=== PATIENT | female | born 1950 | race Caucasian/White ===

== ENCOUNTER 2024-03-03 13:34 | Emergency (ER) | payer BC, OTHER ==
[2024-03-03 15:22] LABS: Urine Bacteria 20-50 /HPF (<20); Urine Bilirubin NEGATIVE (Negative); Urine Blood 2+ (Negative); Urine Clarity Extremely Turbid (Clear); Urine Color Yellow (Yellow); Urine Culture Reflex Order REFLEXED; Urine Glucose NEGATIVE (Negative); Urine Ketones 3+ (Negative); Urine Microscopic Reflex YN ORDER UMIC; Urine Mucus 1+ /HPF (None Seen); Urine Nitrite 2+ (Negative); Urine Protein TRACE (Negative); Urine Urobilinogen Normal (Normal); Urine WBC >50 /HPF (<5); Urine WBC Clump Rare /HPF (None Seen)
--- NOTE | 2024-03-03 15:22 | RAD REPORT ---
EXAM DESCRIPTION: RAD - Chest Single View - 03/03/2024 3:06 pm CLINICAL HISTORY: abdominal pain COMPARISON: No comparisons FINDINGS: Lines: None. Lungs: No evidence of edema or pneumonia. Pleural: No significant pleural effusions or pneumothorax. Cardiac: The heart size is within normal limits. Mediastinum: Within normal limits. Bones: No acute fractures. Right shoulder arthroplasty. Other: None IMPRESSION: No acute cardiopulmonary disease.
[2024-03-03 15:32] LABS: Absolute Lymphocytes (CBC) 1.2 K/uL (0.7-4.9); Absolute Monocytes 0.4 K/uL (0.1-1.3); Absolute Neutrophil 4.1 K/uL (1.8-8.0); Basophils % 0.3 % (0-1.3); Eosinophils % 0.3 % (0-4.4); Hematocrit 37.2 % (36.0-45.0); Hemoglobin 12.6 g/dL (12.0-15.0); Lymphocytes % 20.9 % (15.3-44.8); MCH 31.2 pg (27.0-35.0); MCHC 33.7 g/dL (32.0-36.0); MCV 92.4 fL (80-100); MPV 7.3 fL (7.6-11.3); Monocytes % 7.4 % (3.3-12.3); Neutrophils % 71.1 % (41.7-73.7); Nucleated Red Blood Cells % 0.1 % (0-0); Platelets 215 thou/uL (152-406); RBC Red Blood Cell Count 4.03 M/uL (3.86-4.86); Red Cell Distribution Width 13.6 % (12.1-15.2)
[2024-03-03 15:42] LABS: PT Prothrombin Time 12.2 SECONDS (9.5-12.5); PTT, Activated Partial Thromb 28.6 SECONDS (24.3-36.9); Protime INR 1.11
[2024-03-03 15:52] LABS: Potassium 3.7 mEq/L (3.5-5.1); Sodium Level 136 mEq/L (136-145)
[2024-03-03 15:53] LABS: AST/SGOT 15 U/L (15-37); Albumin 3.4 g/dL (3.4-5.0); Albumin/Globulin Ratio 0.9 (1.1-1.8); Alkaline Phosphatase 97 U/L (45-117); Anion Gap 13.7 mEq/L (5.0-15.0); BUN Blood Urea Nitrogen 11 mg/dL (7-18); Bicarbonate 19 mEq/L (21-32); Bilirubin Total 0.9 mg/dL (0.2-1.0); Globulin 3.6 g/dL (2.3-3.5); Glomerular Filtration Rate 55 ml/min (=/>90); Glucose Level 89 mg/dL (74-106); Troponin High Sensitivity 11.2 pg/mL (<58.9)
[2024-03-03 16:25] LABS: ALT/SGPT < 14 U/L (13-56)
[2024-03-03] MEDS ORDERED: CEFTRIAXONE 1000 MG/VIAL ONE (17:53)
--- NOTE | 2024-03-03 18:27 | RAD REPORT ---
EXAM DESCRIPTION: CTAbdomen Pelvis W Contrast - 03/03/2024 6:10 pm CLINICAL HISTORY: ABD PAIN COMPARISON: No comparisons TECHNIQUE: CT of the abdomen and pelvis was performed. All CT scans are performed using dose optimization technique as appropriate and may include automated exposure control or mA/KV adjustment according to patient size. FINDINGS: Lower chest: No acute abnormality. Liver: No acute abnormality or suspicious lesions. Biliary: No biliary ductal dilatation. Cholecystectomy. Stomach: No significant focal abnormality. Duodenum: No significant focal abnormality. Pancreas: No significant abnormality. Spleen: No significant abnormality. Adrenal: No suspicious lesions. Kidney/ureter: No hydronephrosis. No renal calculi. Too small to characterize and/or benign appearing renal lesions are noted. Retroperitoneum: No retroperitoneal adenopathy. Vascular: No aneurysm. Bowel: Long segment of hyperenhancement with target appearance of the ileum. The terminal ileum is sp ared . Interloop fluid present. No bowel obstruction. Colonic wall thickening and hyperenhancement ex tending from the mid transverse colon to the rectum. Peritoneum: Free fluid is present. Small fat containing umbilical hernia. Bladder: Grossly unremarkable. Reproductive: No adnexal masses. Bones: No acute fracture. Fusion hardware in the lower spine. Multilevel degenerative changes are pre sent in the spine. Other: n/a IMPRESSION: Long segment of hyperenhancement wall thickening at the ileum with target sign is a diff erential which includes ischemic bowel, vasculitis, infectious enteritis, and angioedema. No bowel ob struction. Colonic wall thickening also present which is less pronounced. Abdominopelvic free fluid. No free air or portal venous gas.
[2024-03-03] MEDS ORDERED: KETOROLAC 30 MG/ML INJ ONE (18:46)
--- NOTE | 2024-03-03 19:24 | ER ---
Nurse's Notes [facility] Name: Regina Gonzalez Age: 73 yrs Sex: Female : 1950 Arrival Date: 03/03/2024 Time: 13:34 Bed 14 Private MD: Diagnosis: UTI/ Urinary tract infection, site not specified;Abdominal pain, unspecified;Diarrhea, unspecified Presentation: 03/03 13:58 Chief complaint: Black urine in depends, not sure if it is urine, abdominal pain, and hb ectal pain x 2-3 weeks. Also c/o malaise and SOB. Coronavirus screen: At this time, the client does not indicate any symptoms associated with coronavirus-19. Ebola Screen: No symptoms or risks identified at this time. Initial Sepsis Screen: Does the patient meet any 2 criteria? No. Patient's initial sepsis screen is negative. Does the patient have a suspected source of infection? No. Patient's initial sepsis screen is negative. Risk Assessment: Do you want to hurt yourself or someone else? Patient reports no desire to harm self or others. Onset of symptoms was February 10, 2024. 13:58 Method Of Arrival: Ambulatory hb 13:58 Acuity: SIMBA 3 hb Triage Assessment: 14:06 General: Appears in no apparent distress. Behavior is calm, cooperative. Pain: Pain hb currently is 8 out of 10 on a pain scale. Neuro: Level of Consciousness is awake, alert, obeys commands, Oriented to person, place, time, situation. Cardiovascular: Patient's skin is warm and dry. Respiratory: Respiratory effort is even, unlabored, Respiratory pattern is regular, symmetrical. GI: Reports lower abdominal pain, upper abdominal pain. Historical: - Allergies: 14:03 No Known Allergies; hb - Home Meds: 14:03 venlafaxine oral [Active]; levothyroxine oral [Active]; Lisinopril Oral [Active]; hb - PMHx: 14:03 Hypertension; hb - PSHx: 14:03 Shoulder - Right; Tubal Ligation; Tonsillectomy; hb - Immunization history:: Adult Immunizations up to date. - Infectious Disease History:: Denies. - Social history:: Smoking status: Patient denies any tobacco usage or history of. Screenin:[address] [facility] ED Fall Risk Assessment (Adult) History of falling in the last 3 months, cp4 including since admission No falls in past 3 months (0 pts) Confusion or Disorientation No (0 pts) Intoxicated or Sedated No (0 pts) Impaired Gait No (0 pts) Mobility Assist Device Used No (0 pt) Altered Elimination No (0 pt) Score/Fall Risk Level 0 - 2 = Low Risk Oriented to surroundings, Maintained a safe environment, Assessed \T\ reinforced patient's understanding of fall precautions, Hourly rounding (assess needs \T\ fall precautionary measures) done. Abuse screen: Denies threats or abuse. Nutritional screening: No deficits noted. Tuberculosis screening: No symptoms or risk factors identified. Assessment: 15:13 General: Appears uncomfortable, Behavior is calm, cooperative, appropriate for age. cp4 Pain: Complains of pain in rectal. GI: Bowel sounds present X 4 quads. Abd is soft and non tender X 4 quads. Reports diarrhea. 19:05 General: Appears in no apparent distress. comfortable, Behavior is calm, cooperative, jw7 appropriate for age. Pain: Complains of pain in abdomen Pain does not radiate. Pain currently is 2 out of 10 on a pain scale. Quality of pain is described as crampy, Is continuous. Neuro: Level of Consciousness is awake, alert, obeys commands, Oriented to person, place, time, situation. Cardiovascular: Heart tones S1 S2 present Capillary refill < 3 seconds Clubbing of nail beds is absent JVD is absent Patient's skin is warm and dry. Respiratory: Airway is patent Trachea midline Respiratory effort is even, unlabored, Respiratory pattern is regular, symmetrical, Breath sounds are clear bilaterally. 19:05 GI: Abdomen is round non-distended, Bowel sounds present X 4 quads. Abd is soft and non jw7 tender X 4 quads. Reports diarrhea. : No deficits noted. No signs and/or symptoms were reported regarding the genitourinary system. EENT: No deficits noted. No signs and/or symptoms were reported regarding the EENT system. Derm: Skin is intact, is healthy with good turgor, Skin is dry, Skin is normal, Skin temperature is warm. Musculoskeletal: Circulation, motion, and sensation intact. Range of motion: intact in all extremities. Vital Signs: 13:58 BP 192 / 88; Pulse 102; Resp 16; Temp 98.3(TE); Pulse Ox 96% on R/A; Weight 79.38 kg; hb Height 5 ft. 0 in. ; Pain 8/10; 15:16 BP 143 / 86; Pulse 94; Resp 18; Pulse Ox 97% ; cp4 16:30 BP 153 / 81; Pulse 81; Resp 18; Pulse Ox 96% ; cp4 17:30 BP 155 / 71; Pulse 88; Resp 18; Pulse Ox 99% ; cp4 19:00 BP 162 / 73; Pulse 84; Resp 16 S; Pulse Ox 100% on R/A; jw7 19:45 BP 153 / 64; Pulse 87; Resp 18 S; Pulse Ox 100% on R/A; jw7 13:58 Body Mass Index 34.18 (79.38 kg, 152.4 cm) hb 13:58 Pain Scale: Adult hb ED Course: 13:38 Patient arrived in ED. mr 13:48 Nagi Costa PA is PHCP. cp 13:48 Nagi Suresh MD is Attending Physician. cp 14:00 Triage completed. hb 14:05 Arm band placed on. hb 15:00 Ailyn Jane is Primary Nurse. cp4 15:08 Chest Single View XRAY In Process Unspecified. EDMS 15:10 Urinalysis w/ reflexes Sent. cp4 15:13 Bed in low position. Call light in reach. Side rails up X2. cp4 15:13 No provider procedures requiring assistance completed. cp4 15:20 Initial lab(s) drawn, by me, sent to lab. First set of blood cultures drawn by me. em1 Inserted saline lock: 20 gauge in left wrist, using aseptic technique. Blood collected. 15:25 CBC with Diff Sent. em1 15:25 CMP Sent. em1 15:25 Lactate w/ 2H reflex if indic. Sent. em1 15:25 Protime (+inr) Sent. em1 15:25 Ptt, Activated Sent. em1 15:25 Troponin High Sensitivity Sent. em1 18:10 CT Abd/Pelvis - IV Contrast Only In Process Unspecified. EDMS 19:00 Provided Education on: Use of Call Light. jw7 19:09 Wilda Foley, RN is Primary Nurse. jw7 20:02 IV discontinued, intact, bleeding controlled, No redness/swelling at site. Pressure jw7 dressing applied. Administered Medications: 17:58 Drug: Rocephin IV 1 grams IV at calculated rate once; Given slow IV push per pharmacy cp4 instructions Route: IV; Rate: calculated rate; Site: left hand; 19:56 Follow up: Response: No adverse reaction; IV Status: Completed infusion; IV Intake: [id number] 18:50 Drug: Ketorolac IVP 15 mg IVP once Route: IVP; Site: left hand; cp4 19:56 Follow up: Response: No adverse reaction jw7 19:56 Drug: metroNIDAZOLE PO 500 mg PO once Route: PO; jw7 19:56 Follow up: Response: No adverse reaction; Medication administered at discharge. jw7 Medication: 15:13 VIS not applicable for this client. cp4 Intake: 19:56 IV: 50ml; Total: 50ml. jw7 Outcome: 19:24 Discharge ordered by MD. cp 20:02 Discharged to home ambulatory, jw7 20:02 Condition: stable 20:02 Discharge instructions given to patient, family, Instructed on discharge instructions, follow up and referral plans. medication usage, Demonstrated understanding of instructions, follow-up care, medications, Prescriptions given X 4, 20:03 Patient left the ED. jw7 Signatures: Dispatcher [employer] EDMS Nidhi Saleh, Reg Reg mr Carroll, Giovanni em1 Nagi Costa PA PA cp Rosi Singh RN RN Wilda Hill RN RN jw7 Ailyn Jane cp4 Corrections: (The following items were deleted from the chart) 14:06 13:58 Chief complaint: Black urine in depends, not sure if it is urine, and rectal pain hb x 2-3 weeks. Also c/o malaise and SOB. hb
--- NOTE | 2024-03-03 19:25 | EDPHYS ---
Physician Documentation [facility] Name: Regina Gonzalez Age: 73 yrs Sex: Female : 1950 Arrival Date: 03/03/2024 Time: 13:34 Bed 14 Private MD: ED Physician Nagi Suresh HPI: 03/03 14:40 This 73 yrs old Female presents to ER via Ambulatory with complaints of Abdominal Pain, cp Urinary Problem. Historical: - Allergies: 14:03 No Known Allergies; hb - Home Meds: 14:03 venlafaxine oral [Active]; levothyroxine oral [Active]; Lisinopril Oral [Active]; hb - PMHx: 14:03 Hypertension; hb - PSHx: 14:03 Shoulder - Right; Tubal Ligation; Tonsillectomy; hb - Immunization history:: Adult Immunizations up to date. - Infectious Disease History:: Denies. - Social history:: Smoking status: Patient denies any tobacco usage or history of. ROS: 14:45 Constitutional: Negative for fever, poor PO intake, cp 14:45 Abdomen/GI: Positive for abdominal pain, cp 14:45 : Positive for urinary symptoms, Exam: 15:33 ECG was reviewed by the Attending Physician. cp Vital Signs: 13:58 BP 192 / 88; Pulse 102; Resp 16; Temp 98.3(TE); Pulse Ox 96% on R/A; Weight 79.38 kg; hb Height 5 ft. 0 in. ; Pain 8/10; 15:16 BP 143 / 86; Pulse 94; Resp 18; Pulse Ox 97% ; cp4 16:30 BP 153 / 81; Pulse 81; Resp 18; Pulse Ox 96% ; cp4 17:30 BP 155 / 71; Pulse 88; Resp 18; Pulse Ox 99% ; cp4 19:00 BP 162 / 73; Pulse 84; Resp 16 S; Pulse Ox 100% on R/A; jw7 19:45 BP 153 / 64; Pulse 87; Resp 18 S; Pulse Ox 100% on R/A; jw7 13:58 Body Mass Index 34.18 (79.38 kg, 152.4 cm) hb 13:58 Pain Scale: Adult hb MDM: 14:03 Patient medically screened. cp 03/03 14:34 Order name: Blood Culture Adult (2) cp 03/03 14:34 Order name: CBC with Diff; Complete Time: 16:01 cp 03/03 16:01 Interpretation: Normal except: MPV 7.3. cp 03/03 14:34 Order name: CMP; Complete Time: 16:39 cp 03/03 16:39 Interpretation: Normal except: CO2 19; CRE 1.07; GFR 55; GLOB 3.6; A/G 0.9. cp 03/03 14:34 Order name: Lactate w/ 2H reflex if indic.; Complete Time: 16:01 cp 03/03 14:34 Order name: Protime (+inr); Complete Time: 16:01 cp 03/03 14:34 Order name: Ptt, Activated; Complete Time: 16:01 03/03 14:34 Order name: Urinalysis w/ reflexes; Complete Time: 15:31 cp 03/03 16:39 Interpretation: Normal except: [facility] Extremely Turbid; UKET 3+; UBLD 2+; UPROT TRACE; cp UNIT 2+; UESTR 500; UWBC >50; URBC 5-10; UBACT 20-50. 03/03 14:34 Order name: Troponin High Sensitivity; Complete Time: 16:39 cp 03/03 15:30 Order name: Urine Culture EDMS 03/03 14:34 Order name: Chest Single View XRAY; Complete Time: 15:31 cp 03/03 17:47 Order name: CT Abd/Pelvis - IV Contrast Only; Complete Time: 18:31 cp 03/03 14:34 Order name: EKG; Complete Time: 14:35 cp 03/03 14:34 Order name: Accucheck; Complete Time: 15:31 cp 03/03 14:34 Order name: Cardiac monitoring; Complete Time: 15:31 cp 03/03 14:34 Order name: EKG - Nurse/Tech; Complete Time: 15:31 cp 03/03 14:34 Order name: IV Saline Lock - Large Bore; Complete Time: 15:25 cp 03/03 14:34 Order name: Labs collected and sent; Complete Time: 15:25 cp 03/03 14:34 Order name: O2 Per Protocol; Complete Time: 15:31 cp 03/03 14:34 Order name: O2 Sat Monitoring; Complete Time: 15:31 cp 03/03 14:34 Order name: Vital Signs; Complete Time: 15:31 cp EC:33 Rate is 90 beats/min. Rhythm is regular. [place] interval is normal. QRS interval is normal. cp QT interval is normal. T waves are Inverted in lead aVR. Interpreted by me. Reviewed by me. Administered Medications: 17:58 Drug: Rocephin IV 1 grams IV at calculated rate once; Given slow IV push per pharmacy cp4 instructions Route: IV; Rate: calculated rate; Site: left hand; 19:56 Follow up: Response: No adverse reaction; IV Status: Completed infusion; IV Intake: [id number] 18:50 Drug: Ketorolac IVP 15 mg IVP once Route: IVP; Site: left hand; cp4 19:56 Follow up: Response: No adverse reaction jw7 19:56 Drug: metroNIDAZOLE PO 500 mg PO once Route: PO; jw7 19:56 Follow up: Response: No adverse reaction; Medication administered at discharge. jw7 Disposition Summary: 03/03/24 19:24 Discharge Ordered Notes: Location: Home cp Problem: new cp Symptoms: have improved cp Condition: Stable cp Diagnosis - UTI/ Urinary tract infection, site not specified cp - Abdominal pain, unspecified cp - Diarrhea, unspecified cp Followup: cp - With: Private Physician - When: 2 - 3 days - Reason: Recheck today's complaints Discharge Instructions: - Discharge Summary Sheet cp - Abdominal Pain, Adult cp - Food Choices to Help Relieve Diarrhea, Adult cp - Diarrhea, Adult cp - Urinary Tract Infection, Adult cp Forms: - Medication Reconciliation Form cp - Antibiotic Education cp - Prescription Opioid Use cp - Patient Portal Instructions cp - Leadership Thank You Letter cp Prescriptions: - Zofran 4 mg Oral Tablet - take 1 tablet ORAL route every 12 hours As needed; 20 tablet; Refills: 0, cp Product Selection Permitted - Metronidazole 500 mg Oral Tablet - take 1 tablet ORAL route every 8 hours; 30 tablet; Refills: 0, Product cp Selection Permitted - cefpodoxime 200 mg Oral tablet - take 1 tablet ORAL route every 12 hours for 10 days with food; 20 tablet; cp Refills: 0, Product Selection Permitted - dicyclomine 20 mg Oral tablet - take 1 tablet ORAL route 4 times per day; 30 tablet; Refills: 0, Product cp Selection Permitted Signatures: Dispatcher [facility] Nagi Costa PA PA cp Rosi Singh RN RN Wilda Foley RN RN jw7 Ailyn Jane cp4 Corrections: (The following items were deleted from the chart) 14:35 14:35 BLOOD CULTURE*+BA.LAB.BRZ ordered. EDMS EDMS 14:35 14:35 CBC+H.LAB.BRZ ordered. EDMS EDMS 14:35 14:35 COMPREHENSIVE METABOLIC PANEL+C.LAB.BRZ ordered. EDMS EDMS 14:35 14:35 LACTATE+C.LAB.BRZ ordered. EDMS EDMS 14:35 14:35 PROTIME (+INR)+COAG.LAB.BRZ ordered. EDMS EDMS 14:35 14:35 PTT, ACTIVATED+COAG.LAB.BRZ ordered. EDMS EDMS 14:35 14:35 Urinalysis+U.LAB.BRZ ordered. EDMS EDMS 14:35 14:35 Troponin High Sensitivity+C.LAB.BRZ ordered. EDMS EDMS 14:35 14:35 Ova and Parasites+MR.LAB.BRZ ordered. EDMS EDMS 14:35 14:35 Rotavirus Antigen+BA.LAB.BRZ ordered. EDMS EDMS 14:35 14:35 Stool Culture+BA.LAB.BRZ ordered. EDMS EDMS 14:35 14:35 C.difficile GDH Ag \T\ Toxin AB+LAB.BRZ ordered. EDMS EDMS 19:38 14:34 Tabor ordered. cp jw7
[2024-03-03] MEDS ORDERED: metroNIDAZOLE 500 MG TABLET ONE (19:50)
[2024-03-03 20:37] VITALS: BP 153/64; TEMP 98.3; O2SAT 100
--- NOTE | 2024-03-04 14:13 | EKG ---
Test Date: 2024-03-03 Test Time: 15:26:01 Computer Support Analyst: SONAM MEASUREMENT RESULTS: Intervals: Rate: 90 DE: 162 QRSD: 78 QT: 366 QTc: 447 [place]: P: 32 DE: 162 QRS: -9 T: 31 INTERPRETIVE STATEMENTS: Normal sinus rhythm Normal ECG No previous ECG available for comparison Electronically Signed On 03-04-24 14:11:23 CDT by Oliver Sosa
== END 2024-03-03 20:03 | disposition home or self-care (01) ==
LOC: ER 13:34
DX: N39.0 Urinary tract infection, site not specified (principal); R19.7 Diarrhea, unspecified
CPT/HCPCS: 96365; 93005; 87040 ×2; 87088; 85025; 81001; 87086; 36415; 85610; 83605; 85730; 87077; 87186; 84484; 80053; 74177; 71045; 96375; 99284; 96366; Q9967; J0696

== ENCOUNTER 2024-03-25 22:52 | Emergency (ER) | payer BC, OTHER ==
[2024-03-26] MEDS ORDERED: KETOROLAC 30 MG/ML INJ ONE (00:36)
[2024-03-26] MEDS ORDERED: PHENAZOPYRIDINE 100MG TAB PO ONE ×2 (00:36→00:45)
[2024-03-26] MEDS ORDERED: NA CHLORIDE 0.9% 1,000 ML ONE (00:37)
[2024-03-26 00:56] LABS: PT Prothrombin Time 12.2 SECONDS (9.5-12.5); PTT, Activated Partial Thromb 28.1 SECONDS (24.3-36.9); Protime INR 1.11
[2024-03-26 01:00] LABS: Absolute Lymphocytes (CBC) 1.2 K/uL (0.7-4.9); Absolute Monocytes 0.5 K/uL (0.1-1.3); Absolute Neutrophil 4.6 K/uL (1.8-8.0); Basophils % 0.4 % (0-1.3); Eosinophils % 0.2 % (0-4.4); Hematocrit 36.8 % (36.0-45.0); Hemoglobin 12.6 g/dL (12.0-15.0); Lymphocytes % 18.8 % (15.3-44.8); MCHC 34.4 g/dL (32.0-36.0); MCV 90.3 fL (80-100); MPV 8.1 fL (7.6-11.3); Monocytes % 8.4 % (3.3-12.3); Neutrophils % 72.2 % (41.7-73.7); Nucleated Red Blood Cells % 0.2 % (0-0); Platelets 232 thou/uL (152-406); RBC Red Blood Cell Count 4.07 M/uL (3.86-4.86); Red Cell Distribution Width 13.4 % (12.1-15.2)
[2024-03-26 01:17] LABS: Albumin 3.7 g/dL (3.4-5.0); Bilirubin Total 0.7 mg/dL (0.2-1.0); Globulin 3.6 g/dL (2.3-3.5); Protein, Total 7.3 g/dL (6.4-8.2)
[2024-03-26 04:19] LABS: Specific Gravity 1.025 (1.005-1.030); Sqamous Epithelial None Seen /HPF (None Seen); Urine Bacteria None Seen /HPF (<20); Urine Bilirubin NEGATIVE (Negative); Urine Blood Trace (Negative); Urine Clarity Clear (Clear); Urine Color Dark-Yellow (Yellow); Urine Culture Reflex Order NOT NEEDED; Urine Glucose NEGATIVE (Negative); Urine Ketones NEGATIVE (Negative); Urine Microscopic Reflex YN ORDER UMIC; Urine Nitrite NEGATIVE (Negative); Urine Protein TRACE (Negative); Urine RBC <5 /HPF (None Seen); Urine Urobilinogen Normal (Normal); Urine pH 6.5 (5.0-7.0)
[2024-03-26] MEDS ORDERED: ACETAMINOPHEN 500 MG TAB ONE (04:28)
--- NOTE | 2024-03-26 04:42 | EDPHYS ---
Physician Documentation [facility] Name: Regina Gonzalez Age: 73 yrs Sex: Female : 1950 Arrival Date: 03/25/2024 Time: 22:52 Bed 6 Private MD: ED Physician Linden Blum HPI: 03/25 23:15 This 73 yrs old Female presents to ER via Ambulatory with complaints of Urinary Problem.kb 23:15 PT is a 73 year old female who presents for dysuria, urinary frequency and urgency that kb started this afternoon. States pain is getting worse. Denies abd pain, flank pain, fever. . Historical: - Allergies: 23:03 No Known Allergies; as6 - PMHx: 23:03 Hypertension; as6 - PSHx: 23:03 Shoulder - Right; Tonsillectomy; tubal ligation; as6 - Immunization history:: Adult Immunizations up to date. - Infectious Disease History:: Denies. - Social history:: Smoking status: Patient denies any tobacco usage or history of. ROS: 23:15 Constitutional: As per HPI kb Exam: 23:15 Constitutional: This is a well developed, well nourished patient who is awake, alert, kb and in no acute distress. Head/Face: Normocephalic, atraumatic. ENT: Moist Mucous membranes Cardiovascular: Regular rate Respiratory: Respirations even and unlabored. No increased work of breathing. Talking in full sentences Abdomen/GI: Soft, non-tender. No distention Skin: Warm, dry with normal turgor. Normal color. MS/ Extremity: Pulses equal, no cyanosis. Neurovascular intact. Full, normal range of motion. Neuro: Awake and alert, GCS 15, oriented to person, place, time, and situation. Moves all extremities. Normal gait. 03/26 03:32 ECG was reviewed by the Attending Physician. EKG at 0 144, normal sinus rhythm rate 86, sp4 LVH, prolonged QT 04:38 Eyes: Pupils equal round and reactive to light, extra-ocular motions intact. Lids and sp4 lashes normal. Conjunctiva and sclera are not injected. Cornea within normal limits. Periorbital areas with no swelling, redness, or edema. Neck: Trachea midline, no thyromegaly or masses palpated, and no cervical lymphadenopathy. Supple, full range of motion without nuchal rigidity, or vertebral point tenderness. Chest/axilla: Normal chest wall appearance and motion. Nontender with no deformity. No lesions are appreciated. Back: No spinal tenderness. No costovertebral tenderness. Psych: Awake, alert, with orientation to person, place and time. Behavior, mood, and affect are within normal limits 04:38 : Exam negative for discharge, blood at meatus, Genital exam in the presence of female nurse reveals no sign of seizure, no sign of anal fistula, no sign of communicating tract between vaginal and the rectum. Catheterized urine reveals urinalysis is basically normal without urine being contaminated by the stool. Patient at this time stable for discharge home. No emergency problems detected. Will refer to [facility] for further exam. , Vital Signs: 03/25 23:02 BP 153 / 56; Pulse 128; Resp 18; Temp 97.6; Pulse Ox 97% ; Weight 74.84 kg; Height 5 as6 ft. 0 in. ; Pain 8/10; 03/26 01:00 BP 133 / 80; Pulse 81; Resp 18 S; Pulse Ox 96% on R/A; ha1 03/25 23:02 Body Mass Index 32.22 (74.84 kg, 152.4 cm) as6 03/25 23:02 Pain Scale: Adult as6 [place] Coma Score: 03:32 Eye Response: spontaneous(4). Motor Response: obeys commands(6). Verbal Response: sp4 oriented(5). Total: 15. MDM: 03/25 22:57 Patient medically screened. kb 23:58 ED course: Pt reports she went to the restroom and has stool coming out of urethra. . kb 03/26 00:43 Data reviewed: vital signs, nurses notes. Transition of care: After a detail discussion kb of the patient's case, care is transferred to Linden Blum MD. 03:34 Differential Diagnosis altered mental status, sepsis, flu. ED course: TECHNIQUE: CT of sp4 the abdomen and pelvis [with] intravenous contrast. All CT scans at this facility use dose modulation, iterative reconstruction, and/or weight based dosing when appropriate to reduce radiation dose to as low as reasonably achievable. COMPARISON: CT abdomen pelvis 03/03/2024 FINDINGS: Lower thorax: Lung bases are clear Abdomen: Stomach:Within normal limits Liver:No focal lesions. Hepatic steatosis. Enlarged. No intrahepatic ductal distention. Gallbladder:Surgically absent. Pancreas:Within normal limits Spleen:Within normal limits Right kidney:No hydronephrosis. Multiple renal cysts. Left kidney:No hydronephrosis. Multiple renal cysts. Adrenal glands:Within normal limits Vascular structures:Within normal limits Nodes:No lymphadenopathy by size criteria Pelvis: Small bowel:No significant distention. Appendix: Not visualized. No pericecal inflammatory changes. Colon:No distention or acute pericolonic edema. Peritoneum: No free intraperitoneal fluid or air. Bones: No acute bone findings. Posterior fusion spanning L4-S1 with superimposed laminectomy changes. Bladder: Unremarkable. Reproductive organs: No acute findings. IMPRESSION: 1. No acute abdominopelvic findings. 2. Hepatic steatosis. Hepatomegaly. Electronically signed by: Maurilio Daniel MD 03/26/2024. 03/25 23:05 Order name: Blood Culture Adult (2) kb 03/25 23:05 Order name: CBC with Diff; Complete Time: 01:06 kb 03/25 23:05 Order name: CMP; Complete Time: 03:34 kb 03/25 23:05 Order name: Lactate w/ 2H reflex if indic.; Complete Time: 01:12 kb 03/25 23:05 Order name: Protime (+inr); Complete Time: 00:58 kb 03/25 23:05 Order name: Ptt, Activated; Complete Time: 00:58 kb 03/25 23:05 Order name: Urinalysis w/ reflexes; Complete Time: 04:32 kb 03/25 23:58 Order name: CT Abd/Pelvis - IV Contrast Only kb 03/25 23:05 Order name: EKG; Complete Time: 23:06 kb 03/25 23:05 Order name: Accucheck; Complete Time: 01:54 kb 03/25 23:05 Order name: Cardiac monitoring; Complete Time: 01:54 kb 03/25 23:05 Order name: EKG - Nurse/Tech; Complete Time: 01:54 kb 03/25 23:05 Order name: IV Saline Lock - Large Bore; Complete Time: 01:13 kb 03/25 23:05 Order name: Labs collected and sent; Complete Time: 01:13 kb 03/25 23:05 Order name: O2 Per Protocol; Complete Time: 01:13 kb 06/18 23:05 Order name: O2 Sat Monitoring; Complete Time: 01:13 kb 18 23:05 Order name: Vital Signs; Complete Time: 01:13 kb EC:32 Rate is 86 beats/min. Rhythm is regular, Normal Sinus Rhythm. QRS [place] is Normal. VT sp4 interval is normal. QRS interval is normal. QT interval is prolonged. No Q waves. T waves are Normal. No ST changes noted. Clinical impression: No evidence of ischemia. Interpreted by me. Reviewed by me. Administered Medications: 00:51 Drug: NS 0.9% IV 1000 ml IV at 1000 ml once Route: IV; Rate: 1000 ml; Site: left wrist; lc8 03:50 Follow up: Response: No adverse reaction; IV Status: Completed infusion; IV Intake: ha1 1000ml 00:51 Drug: Phenazopyridine PO 100 mg PO once Route: PO; lc8 01:30 Follow up: Response: No adverse reaction; Marked relief of symptoms ha1 00:51 Drug: Ketorolac IVP 15 mg IVP once Route: IVP; Site: left wrist; lc8 01:30 Follow up: Response: No adverse reaction; Marked relief of symptoms ha1 04:37 Drug: Acetaminophen PO 1000 mg PO once Route: PO; ha1 04:54 Follow up: Response: No adverse reaction; Marked relief of symptoms ha1 Disposition: 04:40 Co-signature as Attending Physician, Linden Blum MD I agree with the assessment sp4 and plan of care. I reviewed the patient's care provided by Advanced Practice Provider \T\ agree w/ the diagnosis \T\ care plan. I personally saw the pt \T\ performed a substantive portion of the visit, incldng all aspects of the (History/Exam/Medical Decision Making). Disposition Summary: 03/26/24 04:41 Discharge Ordered Problem: new sp4 Symptoms: have improved sp4 Condition: Stable sp4 Diagnosis - Dysuria sp4 Followup: sp4 - With: Misa Kumar MD - When: 2 - 3 days - Reason: Recheck today's complaints Discharge Instructions: - Discharge Summary Sheet sp4 - Dysuria sp4 Forms: - Patient Portal Instructions sp4 Signatures: Dispatcher [employer] Татьяна Kapoor FNP-C FNP-Jase Lopez RN RN as6 Janine Pollock, LAUREL RN ha1 Linden Blum MD MD sp4 Collins Flores RN RN lc8 Corrections: (The following items were deleted from the chart) 03/25 23:06 23:06 BLOOD CULTURE*+BA.LAB.BRZ ordered. EDMS EDMS 23: 23:06 CBC+H.LAB.BRZ ordered. EDMS EDMS 23: 23:06 COMPREHENSIVE METABOLIC PANEL+C.LAB.BRZ ordered. EDMS EDMS 23: 23:06 LACTATE+C.LAB.BRZ ordered. EDMS EDMS 23: 23:06 PROTIME (+INR)+COAG.LAB.BRZ ordered. EDMS EDMS 23: 23:06 PTT, ACTIVATED+COAG.LAB.BRZ ordered. EDMS EDMS 23:06 23:06 Urinalysis+U.LAB.BRZ ordered. EDMS EDMS
--- NOTE | 2024-03-26 04:42 | ER ---
Nurse's Notes [facility] Name: Regina Gonzalez Age: 73 yrs Sex: Female : 1950 Arrival Date: 03/25/2024 Time: 22:52 Bed 6 Private MD: Diagnosis: Dysuria Presentation: 03/25 23:03 Chief complaint: Patient states: "I think I have a UTI" pt reports painful urination as6 with urgency and frequency. Coronavirus screen: At this time, the client does not indicate any symptoms associated with coronavirus-19. Ebola Screen: No symptoms or risks identified at this time. Initial Sepsis Screen: Does the patient meet any 2 criteria? No. Patient's initial sepsis screen is negative. Does the patient have a suspected source of infection? No. Patient's initial sepsis screen is negative. Risk Assessment: Do you want to hurt yourself or someone else? Patient reports no desire to harm self or others. Onset of symptoms was March 25, 2024. 23:03 Method Of Arrival: Ambulatory as6 23:03 Acuity: SIMBA 3 as6 Triage Assessment: 23:04 General: Appears in no apparent distress. uncomfortable, Behavior is calm, cooperative. as6 Pain: Complains of pain in suprapubic area. : Reports burning with urination, urgency, urinary frequency. Historical: - Allergies: 23:03 No Known Allergies; as6 - PMHx: 23:03 Hypertension; as6 - PSHx: 23:03 Shoulder - Right; Tonsillectomy; tubal ligation; as6 - Immunization history:: Adult Immunizations up to date. - Infectious Disease History:: Denies. - Social history:: Smoking status: Patient denies any tobacco usage or history of. Screenin/19 01:00 [facility] ED Fall Risk Assessment (Adult) History of falling in the last 3 months, ha1 including since admission No falls in past 3 months (0 pts) Confusion or Disorientation No (0 pts) Intoxicated or Sedated No (0 pts) Impaired Gait No (0 pts) Mobility Assist Device Used Yes (1 pt) Altered Elimination No (0 pt) Score/Fall Risk Level 0 - 2 = Low Risk Oriented to surroundings, Maintained a safe environment, Educated pt \\T\\ family on fall prevention, incl call for assistance when getting out of bed, Hourly rounding (assess needs \\T\\ fall precautionary measures) done. Abuse screen: Denies threats or abuse. Denies injuries from another. Nutritional screening: No deficits noted. Tuberculosis screening: No symptoms or risk factors identified. Assessment: 01:00 General: Appears comfortable, Behavior is calm, cooperative. Pain: Complains of pain in ha1 suprapubic area Pain does not radiate. Pain currently is 5 out of 10 on a pain scale. Quality of pain is described as burning, Pain began suddenly, Is continuous. Neuro: Level of Consciousness is awake, alert, obeys commands, Oriented to person, place, time, situation. Cardiovascular: Capillary refill < 3 seconds Patient's skin is warm and dry. Respiratory: Airway is patent Respiratory effort is even, unlabored, Respiratory pattern is regular, symmetrical. GI: No signs and/or symptoms were reported involving the gastrointestinal system. Abdomen is round non-distended. : Reports burning with urination, urgency. Derm: Skin is pink, warm \\T\\ dry. Musculoskeletal: Circulation, motion, and sensation intact. Range of motion: intact in all extremities. 01:50 Reassessment: going to CT. ha1 02:07 Reassessment: Patient and/or family updated on plan of care and expected duration. Pain ha1 level reassessed. Patient is alert, oriented x 3, equal unlabored respirations, skin warm/dry/pink. back from CT. Vital Signs: 03/25 23:02 BP 153 / 56; Pulse 128; Resp 18; Temp 97.6; Pulse Ox 97% ; Weight 74.84 kg; Height 5 as6 ft. 0 in. ; Pain 8/10; 03/26 01:00 BP 133 / 80; Pulse 81; Resp 18 S; Pulse Ox 96% on R/A; ha1 03/25 23:02 Body Mass Index 32.22 (74.84 kg, 152.4 cm) as6 03/25 23:02 Pain Scale: Adult as6 Marilyn Coma Score: 03:32 Eye Response: spontaneous(4). Motor Response: obeys commands(6). Verbal Response: sp4 oriented(5). Total: 15. ED Course: 03/25 22:54 Patient arrived in ED. mr 22:57 Татьяна Mcclellan, [facility] kb 22:57 Linden Blum MD is Attending Physician. kb 23:02 Arm band placed on right wrist. as6 23:04 Triage completed. 03/26 00:30 First set of blood cultures drawn by me, Second set of blood cultures drawn by me. [facility] 00:41 Door closed. Noise minimized. Visitors limited. Lights dimmed. f 00:41 Inserted saline lock: 20 gauge in left wrist, using aseptic technique. Blood collected. 00:42 Warm blanket given. kmf 00:42 Initial lab(s) drawn, by me, sent to lab. kmf 01:19 Patient has correct armband on for positive identification. Placed in gown. Bed in low ha1 position. Call light in reach. Side rails up X 1. 02:01 CT Abd/Pelvis - IV Contrast Only In Process Unspecified. EDMS 04:40 Misa Kumar MD is Referral Physician. sp4 04:55 Assist provider with pelvic exam: Set up pelvic tray. Performed by Linden Blum MD ha1 Patient tolerated well. 05:05 Provided Education on: follow up with OB. ha1 05:05 IV discontinued, intact, bleeding controlled, No redness/swelling at site. Pressure ha1 dressing applied. Administered Medications: 00:51 Drug: NS 0.9% IV 1000 ml IV at 1000 ml once Route: IV; Rate: 1000 ml; Site: left wrist; lc8 03:50 Follow up: Response: No adverse reaction; IV Status: Completed infusion; IV Intake: ha1 1000ml 00:51 Drug: Phenazopyridine PO 100 mg PO once Route: PO; lc8 01:30 Follow up: Response: No adverse reaction; Marked relief of symptoms ha1 00:51 Drug: Ketorolac IVP 15 mg IVP once Route: IVP; Site: left wrist; lc8 01:30 Follow up: Response: No adverse reaction; Marked relief of symptoms ha1 04:37 Drug: Acetaminophen PO 1000 mg PO once Route: PO; ha1 04:54 Follow up: Response: No adverse reaction; Marked relief of symptoms ha1 Medication: 02:11 VIS not applicable for this client. ha1 Intake: 03:50 IV: 1000ml; Total: 1000ml. ha1 Outcome: 04:41 Discharge ordered by . sp4 05:05 Discharged to home ambulatory, with family, ha1 05:05 Condition: stable 05:05 Discharge instructions given to patient, Instructed on discharge instructions, follow up and referral plans. Demonstrated understanding of instructions, follow-up care, 05:06 Patient left the ED. ha1 Signatures: Dispatcher [employer] EDMS Татьяна Mcclellan, HEALTH CARE COACH-C HEALTH CARE COACH-Ckb Delfino, Nidhi, Reg Reg mr Jase Paul RN RN as6 Janine Pollock RN RN ha1 Linden Blum MD MD sp4 Juana Modi [facility] Collins Flores RN RN lc8 Corrections: (The following items were deleted from the chart) 03/25 23:06 23:03 Acuity: SIMBA 4 as6 as6 03/26 02:12 00:40 Patient has correct armband on for positive identification. Placed in gown. Bed ha1 in low position. Call light in reach. Side rails up X 1. ha1
[2024-03-26 05:23] VITALS: BP 133/80; TEMP 97.6; O2SAT 96
== END 2024-03-26 05:06 | disposition home or self-care (01) ==
LOC: ER 22:52
DX: R30.0 Dysuria (principal)
CPT/HCPCS: 36415; 74177; 80053; 81001; 83605; 85025; 85610; 85730; 87040; 93005; J7030; Q9967

== ENCOUNTER 2024-09-12 13:19 | Emergency (ER) | payer BC, OTHER ==
[2024-09-12] MEDS ORDERED: ONDANSETRON 4 MG/2 ML VIAL ONE (13:57)
[2024-09-12] MEDS ORDERED: MORPHINE 4 MG/ML SYR ONE (13:58)
[2024-09-12 14:03] LABS: Absolute Lymphocytes (CBC) 0.8 K/uL (0.7-4.9); Absolute Monocytes 0.5 K/uL (0.1-1.3); Absolute Neutrophil 5.5 K/uL (1.8-8.0); Basophils % 0.2 % (0-1.3); Eosinophils % 0.1 % (0-4.4); Hemoglobin 11.8 g/dL (12.0-15.0); Lymphocytes % 11.4 % (15.3-44.8); MCHC 32.8 g/dL (32.0-36.0); MCV 94.4 fL (80-100); MPV 8.1 fL (7.6-11.3); Neutrophils % 81.3 % (41.7-73.7); Nucleated Red Blood Cells % 0.1 % (0-0); Platelets 203 thou/uL (152-406); RBC Red Blood Cell Count 3.81 M/uL (3.86-4.86); Red Cell Distribution Width 14.3 % (12.1-15.2)
[2024-09-12 14:13] LABS: PT Prothrombin Time 11.5 SECONDS (9.4-12.5); Protime INR 1.03
[2024-09-12 14:27] LABS: Albumin 3.2 g/dL (3.4-5.0); Albumin/Globulin Ratio 0.8 (1.1-1.8); Anion Gap 11.8 mEq/L (5.0-15.0); Bilirubin Direct 0.8 mg/dL (0-0.2); Bilirubin Indirect, Calculated 0.9 mg/dL (0.2-0.8); Bilirubin Total 1.7 mg/dL (0.2-1.0); Globulin 3.8 g/dL (2.3-3.5); Potassium 3.8 mEq/L (3.5-5.1)
--- NOTE | 2024-09-12 14:30 | RAD REPORT ---
Procedure: Chest Single View HISTORY: Cough COMPARISON: February 2024 FINDINGS: The lungs appear clear of acute infiltrate. No significant pleural effusion noted. The heart is normal size. IMPRESSION: No acute abnormality is displayed.
[2024-09-12] MEDS ORDERED: NA CHLORIDE 0.9% 1,000 ML ONE (15:41)
--- NOTE | 2024-09-12 15:45 | RAD REPORT ---
EXAMINATION: CT ABDOMEN AND PELVIS WITH CONTRAST CLINICAL INDICATION: Abdominal pain TECHNIQUE: CT abdomen and pelvis was performed, after the administration of 100 cc Isovue-300.. Sagit derick and coronal reconstructions were obtained. One or more of the following dose reduction techniques were used: Automated exposure control, adjustment of the mA and kV according to patient si ze, and iterative reconstruction. Unless otherwise specified, incidental findings do not require dedicated imaging follow-up. [id number]. Oral contrast was not given which limits evaluation of bowel and appendix. COMPARISON: .March 2024 FINDINGS: The pancreas is mildly edematous with mild stranding in the adjacent fat. No pseudocyst. Cholecystectomy.. Mild prominence of the intra and extrahepatic biliary tree. This is more prominent than on the prior exam. The liver, spleen and adrenals unremarkable. Prominent splenic arterial calcifications Bilateral renal cysts. Largest left kidney 3.1 cm. Post surgical changes involve the spine. Scoliosis is present. Hysterectomy. No adnexal mass. No evidence of diverticulitis. : IMPRESSION: Mild pancreatitis Mild prominence of the intra and extrahepatic biliary tree may be physiologic in this patient status post cholecystectomy. Stricture and stone within the duct are other considerations.
--- NOTE | 2024-09-12 16:43 | RAD REPORT ---
EXAM: Right upper quadrant ultrasound. CLINICAL HISTORY: Abdominal pain COMPARISON: CT abdomen September 12, 2024 FINDINGS: Cholecystectomy Common bile duct 8 mm. Evaluation is somewhat limited without visualization of a stone. IMPRESSION: Mild dilatation of the common bile duct. This can be a normal finding in a patient status post cholec ystectomy. Stricture and nonvisualized stone within the duct or other considerations. If clinically indicated further evaluation with ERCP or MRCP could be obtained
--- NOTE | 2024-09-12 16:54 | ER ---
Nurse's Notes [facility] Name: Regina Gonzalez Age: 74 yrs Sex: Female : 1950 Arrival Date: 09/12/2024 Time: 13:19 Bed 14 Private MD: Diagnosis: Acute pancreatitis with possible biliary obstruction Presentation: 09/12 13:30 Chief complaint: Patient states: mid abdominal pain radiating to back started this iw morning , no vomiting. Coronavirus screen: At this time, the client does not indicate any symptoms associated with coronavirus-19. Ebola Screen: No symptoms or risks identified at this time. Initial Sepsis Screen: Does the patient meet any 2 criteria? No. Patient's initial sepsis screen is negative. Does the patient have a suspected source of infection? No. Patient's initial sepsis screen is negative. Risk Assessment: Do you want to hurt yourself or someone else? Patient reports no desire to harm self or others. 13:30 Method Of Arrival: Ambulatory iw 13:30 Acuity: SIMBA 3 iw 13:31 Onset of symptoms was September 12, 2024. iw Historical: - Allergies: 13:35 No Known Allergies; iw - PMHx: 13:31 Hypertension; iw - PSHx: 13:31 Shoulder - Right; Tonsillectomy; tubal ligation; iw 13:33 Appendectomy; Cholecystectomy; iw - Immunization history:: Adult Immunizations not up to date. - Infectious Disease History:: Denies. - Social history:: Smoking status: Patient denies any tobacco usage or history of. Screenin:36 [facility] ED Fall Risk Assessment (Adult) History of falling in the last 3 months, rs5 including since admission No falls in past 3 months (0 pts) Confusion or Disorientation No (0 pts) Intoxicated or Sedated No (0 pts) Impaired Gait Yes (1 pt) Mobility Assist Device Used Yes (1 pt) Altered Elimination No (0 pt) Score/Fall Risk Level 0 - 2 = Low Risk Oriented to surroundings, Maintained a safe environment. Abuse screen: Denies threats or abuse. Nutritional screening: No deficits noted. Tuberculosis screening: No symptoms or risk factors identified. Assessment: 13:35 General: Appears in no apparent distress. uncomfortable, Behavior is calm, cooperative. rs5 Pain: Complains of pain in abdomen Pain currently is 8 out of 10 on a pain scale. Quality of pain is described as aching, Is continuous. Neuro: Level of Consciousness is awake, alert, obeys commands, Oriented to person, place, time, situation. Cardiovascular: Patient's skin is warm and dry. Respiratory: Airway is patent Respiratory effort is even, unlabored, Respiratory pattern is regular, symmetrical. GI: Abdomen is round non-distended, Abd is soft and non tender X 4 quads. GI: Reports nausea. : No signs and/or symptoms were reported regarding the genitourinary system. EENT: No signs and/or symptoms were reported regarding the EENT system. Derm: Skin is intact, Skin is pink, warm \T\ dry. Musculoskeletal: Range of motion: intact in all extremities. 14:37 Reassessment: Patient and/or family updated on plan of care and expected duration. Pain rs5 level reassessed. Patient is alert, oriented x 3, equal unlabored respirations, skin warm/dry/pink. 16:10 Reassessment: Patient and/or family updated on plan of care and expected duration. Pain rs5 level reassessed. Patient is alert, oriented x 3, equal unlabored respirations, skin warm/dry/pink. 17:01 Reassessment: Patient and/or family updated on plan of care and expected duration. Pain rs5 level reassessed. Patient is alert, oriented x 3, equal unlabored respirations, skin warm/dry/pink. 18:04 Reassessment: Patient and/or family updated on plan of care and expected duration. Pain rs5 level reassessed. Patient is alert, oriented x 3, equal unlabored respirations, skin warm/dry/pink. 18:45 Reassessment: Patient and/or family updated on plan of care and expected duration. Pain rs5 level reassessed. Patient is alert, oriented x 3, equal unlabored respirations, skin warm/dry/pink. 19:06 Reassessment: Patient and/or family updated on plan of care and expected duration. Pain rs5 level reassessed. Patient is alert, oriented x 3, equal unlabored respirations, skin warm/dry/pink. failed attempt to give report x2, asked to call back at a later time. 19:14 Reassessment: Patient appears in no apparent distress at this time. Patient and/or rs5 family updated on plan of care and expected duration. Pain level reassessed. Patient is alert, oriented x 3, equal unlabored respirations, skin warm/dry/pink. 19:59 Reassessment: report called nurse to nurse at 1955. kj2 Vital Signs: 13:31 BP 152 / 83; Pulse 75; Resp 16; Temp 97.3; Pulse Ox 100% on R/A; Weight 77.11 kg; iw Height 5 ft. 0 in. ; Pain 9/10; 14:37 BP 135 / 74; Pulse 88; Resp 17; Pulse Ox 95% on R/A; rs5 17:01 BP 144 / 77; Pulse 77; Resp 18; Pulse Ox 98% on R/A; rs5 18:45 BP 147 / 75; Pulse 74; Resp 18; Pulse Ox 96% on R/A; rs5 19:59 BP 138 / 79; Pulse 76; Resp 18; Pulse Ox 100% on R/A; kj2 21:10 BP 138 / 62; Pulse 74; Resp 18; Temp 98; Pulse Ox 100% ; kj2 13:31 Body Mass Index 33.20 (77.11 kg, 152.4 cm) iw 13:31 Pain Scale: Adult iw ED Course: 13:28 Patient arrived in ED. mg5 13:28 Christina Mason PA-C is PHCP. sb4 13:28 Nagi Suresh MD is Attending Physician. sb4 13:31 Triage completed. iw 13:33 Arm band placed on. iw 13:36 Patient has correct armband on for positive identification. Placed in gown. Bed in low rs5 position. Call light in reach. Side rails up X2. 13:36 No provider procedures requiring assistance completed. rs5 13:38 Dong Wayne, RN is Primary Nurse. rs5 13:40 Inserted saline lock: 24 gauge in left antecubital area, using aseptic technique. Blood rs5 collected. Flushed with 10 mL NS. 14:19 XRAY Chest (1 view) In Process Unspecified. EDMS 15:00 CT Abd/Pelvis - IV Contrast Only In Process Unspecified. EDMS 16:12 Abdomen Limited US In Process Unspecified. EDMS 17:[id number] [facility] to start transfer talked to sp 18:09 transfer center called back to do DOC to DOC. sp 19:15 Provided Education on: call light. rs5 19:15 Report received from LAUREL Umana. kj2 21:11 Patient transferred, IV remains in place. kj2 Administered Medications: 14:09 Drug: Ondansetron IVP 4 mg IVP once; over 2 minutes Route: IVP; Site: left antecubital; rs5 14:33 Follow up: Response: No adverse reaction rs5 14:10 Drug: morphine IVP or IV 4 mg IVP once over 4 mins Route: IVP; Infused Over: 4 mins; rs5 Site: left antecubital; 14:30 Follow up: Response: No adverse reaction; Pain is decreased rs5 15:49 Drug: NS 0.9% IV 1000 ml IV at 1000 ml once; to be given as a bolus over 60 minutes rs5 Route: IV; Rate: 1000 ml; Site: left forearm; 16:55 Follow up: Response: No adverse reaction; IV Status: Completed infusion; IV Intake: rs5 1000ml Medication: 14:38 VIS not applicable for this client. rs5 Intake: 16:55 IV: 1000ml; Total: 1000ml. rs5 Outcome: 16:54 ER care complete, transfer ordered by sb4 21:11 Transferred by ground EMS to [facility], [facility], kj2 21:11 Condition: stable 21:11 Instructed on the need for transfer, 21:24 Patient left the ED. kj2 Signatures: Dispatcher [employer] EDMS Imelda Worthy Irene, RN RN iw Christina Mason, GATITO PALogan sb4 Dong Wayne RN RN rs5 Jennifer Forrest mg5 Polina Herrmann RN RN kj2 Edda Tobar3 Corrections: (The following items were deleted from the chart) 13:33 13:31 Pulse 75bpm; Resp 16bpm; Pulse Ox 100% RA; iw iw 13:35 13:31 BP 152 / 83; Pulse 75bpm; Resp 16bpm; Pulse Ox 100% RA; Temp 97.6F; iw iw 19:26 19:15 Report received from LAUREL Umana rs5 kj2 19:27 19:15 Report received from LAUREL Umana2 kj2 19:27 19:15 Report received from LAUREL Umana2 kj2 19:50 19:50 Inserted saline lock: af3 af3
--- NOTE | 2024-09-12 16:54 | EDPHYS ---
Physician Documentation [facility] Name: Regina Gonzalez Age: 74 yrs Sex: Female : 1950 Arrival Date: 09/12/2024 Time: 13:19 Bed 14 Private MD: ED Physician Nagi Suresh HPI: 09/12 13:36 This 74 yrs old Female presents to ER via Ambulatory with complaints of sb4 epigastric/chest pain. 13:36 patient reports epigastric/chest pain that began this morning. she states the pain sb4 radiates through to her back. she reports nausea, no vomiting, no diarrhea. states she did have some abdominal cramping yesterday. denies any sob or dizziness. reports having pancreatitis in the past. denies any cardiac history. Historical: - Allergies: 13:35 No Known Allergies; iw - PMHx: 13:31 Hypertension; iw - PSHx: 13:31 Shoulder - Right; Tonsillectomy; tubal ligation; iw 13:33 Appendectomy; Cholecystectomy; iw - Immunization history:: Adult Immunizations not up to date. - Infectious Disease History:: Denies. - Social history:: Smoking status: Patient denies any tobacco usage or history of. ROS: 13:36 Constitutional: Negative for fever, chills, and weight loss, sb4 13:36 Cardiovascular: Positive for chest pain, 13:36 Abdomen/GI: Positive for abdominal pain, nausea, 13:36 All other systems are negative, Exam: 13:36 Head/Face: Normocephalic, atraumatic. Eyes: Extra-ocular motions intact. Periorbital sb4 areas with no swelling, redness, or edema. ENT: Mucous membranes moist. Cardiovascular: Regular rate and rhythm with a normal S1 and S2. Respiratory: No increased work of breathing, no retractions or nasal flaring. Abdomen/GI: Soft, non-tender, no distension. Skin: Warm, dry with normal turgor. Normal color with no rashes, no lesions, and no evidence of cellulitis. 13:36 Constitutional: The patient appears alert, awake, uncomfortable, Vital Signs: 13:31 BP 152 / 83; Pulse 75; Resp 16; Temp 97.3; Pulse Ox 100% on R/A; Weight 77.11 kg; iw Height 5 ft. 0 in. ; Pain 9/10; 14:37 BP 135 / 74; Pulse 88; Resp 17; Pulse Ox 95% on R/A; rs5 17:01 BP 144 / 77; Pulse 77; Resp 18; Pulse Ox 98% on R/A; rs5 18:45 BP 147 / 75; Pulse 74; Resp 18; Pulse Ox 96% on R/A; rs5 19:59 BP 138 / 79; Pulse 76; Resp 18; Pulse Ox 100% on R/A; kj2 21:10 BP 138 / 62; Pulse 74; Resp 18; Temp 98; Pulse Ox 100% ; kj2 13:31 Body Mass Index 33.20 (77.11 kg, 152.4 cm) iw 13:31 Pain Scale: Adult iw MDM: 13:29 Medical Screening Exam initiated sb4 13:38 Differential diagnosis: pancreatitis, viral gastroenteritis, ACS, angina, peptic ulcer. sb4 15:51 Data reviewed: vital signs, nurses notes, lab test result(s), radiologic studies, I sb4 have discussed the patient's presentation/case with the attending Emergency Department Physician;. Counseling: I had a detailed discussion with the patient and/or guardian regarding the historical points, exam findings, and any diagnostic results supporting the discharge/admit diagnosis, lab results, radiology results, the need to transfer to another facility, [facility] does not immediately have the required specialist. ED course: no GI science liaison. will transfer to [facility] for GI. 09/12 13:36 Order name: Basic Metabolic Panel; Complete Time: 14:28 sb4 09/12 13:36 Order name: CBC with Diff; Complete Time: 14:05 sb4 09/12 13:36 Order name: LFT's; Complete Time: 14:28 sb4 09/12 13:36 Order name: Magnesium; Complete Time: 14:28 sb4 09/12 13:36 Order name: NT PRO-BNP; Complete Time: 14:28 sb4 09/12 13:36 Order name: PT-INR; Complete Time: 14:18 sb4 09/12 13:36 Order name: Troponin HS; Complete Time: 14:28 sb4 09/12 13:36 Order name: Lipase; Complete Time: 14:28 sb4 09/12 13:36 Order name: XRAY Chest (1 view); Complete Time: 14:33 sb4 09/12 14:29 Order name: CT Abd/Pelvis - IV Contrast Only; Complete Time: 15:46 sb4 09/12 15:46 Order name: Abdomen Limited US; Complete Time: 16:47 sb4 09/12 13:36 Order name: Cardiac monitoring; Complete Time: 14:10 sb4 09/12 13:36 Order name: EKG - Nurse/Tech; Complete Time: 14:10 sb4 09/12 13:36 Order name: IV Saline Lock; Complete Time: 14:10 sb4 09/12 13:36 Order name: Labs collected and sent; Complete Time: 14:10 sb4 09/12 13:36 Order name: O2 Per Protocol; Complete Time: 14:10 sb4 09/12 13:36 Order name: O2 Sat Monitoring; Complete Time: 14:10 sb4 09/12 14:29 Order name: NPO; Complete Time: 14:32 sb4 EC:15 Rate is 77 beats/min. Rhythm is regular, Normal Sinus Rhythm. IN interval is normal at sb4 164 msec. QRS interval is normal at 80 msec. QT interval is normal at 412 msec. No Q waves. T waves are Normal. No ST changes noted. Clinical impression: Normal ECG and No evidence of ischemia. Interpreted by me. Reviewed by me. Administered Medications: 14:09 Drug: Ondansetron IVP 4 mg IVP once; over 2 minutes Route: IVP; Site: left antecubital; rs5 14:33 Follow up: Response: No adverse reaction rs5 14:10 Drug: morphine IVP or IV 4 mg IVP once over 4 mins Route: IVP; Infused Over: 4 mins; rs5 Site: left antecubital; 14:30 Follow up: Response: No adverse reaction; Pain is decreased rs5 15:49 Drug: NS 0.9% IV 1000 ml IV at 1000 ml once; to be given as a bolus over 60 minutes rs5 Route: IV; Rate: 1000 ml; Site: left forearm; 16:55 Follow up: Response: No adverse reaction; IV Status: Completed infusion; IV Intake: rs5 1000ml Disposition Summary: 09/12/24 16:54 Transfer Ordered Notes: Transfer Location: [facility] sb4 Reason: Higher level of care sb4 Condition: Fair sb4 Problem: new sb4 Symptoms: are unchanged sb4 Accepting Physician: bhavesh(09/12/24 21:24) kj2 Diagnosis - Acute pancreatitis sb4 - Acute pancreatitis with possible biliary obstruction sb4 Forms: - Medication Reconciliation Form sb4 - SBAR form sb4 Signatures: Dispatcher [employer] EDMS Danika Valdez, RN RN iw Christina Mason, PA-C PA-C sb4 Dong Wayne, RN RN rs5 Polina Herrmann RN RN kj2 Corrections: (The following items were deleted from the chart) 13:36 13:36 BASIC METABOLIC PANEL+C.LAB.BRZ ordered. EDMS EDMS 13:36 13:36 CBC+H.LAB.BRZ ordered. EDMS EDMS 13:36 13:36 HEPATIC FUNCTION+C.LAB.BRZ ordered. EDMS EDMS 13:36 13:36 MAGNESIUM+C.LAB.BRZ ordered. EDMS EDMS 13:36 13:36 PROBNP+C.LAB.BRZ ordered. EDMS EDMS 13:36 13:36 PROTIME (+INR)+COAG.LAB.BRZ ordered. EDMS EDMS 13:36 13:36 Troponin High Sensitivity+C.LAB.BRZ ordered. EDMS EDMS 13:36 13:36 LIPASE+C.LAB.BRZ ordered. EDMS EDMS 13:36 13:36 Chest Single View+RAD.RAD.BRZ ordered. EDMS EDMS 16:57 16:54 gi sb4 sb4 16:57 16:57 gi sb4 sb4 21:24 16:57 gi sb4 kj2
[2024-09-13 00:26] VITALS: O2SAT 100
[2024-09-13 00:27] VITALS: BP 138/62; TEMP 98
== END 2024-09-12 21:24 | disposition short-term general hospital (02) ==
LOC: ER 13:19
DX: K85.90 Acute pancreatitis without necrosis or infection, unspecified (principal); I10 Essential (primary) hypertension
CPT/HCPCS: 96361; 85025; 80048; 36415; 83735; 85610; 80076; 84484; 83690; 83880; 74177; 71045; 76705; 96375; 96374; 99285; Q9967; J2405; J7030